=== PATIENT | female | born 1990 | race Caucasian/White ===

== ENCOUNTER 2019-05-23 09:05 | Emergency (ER) | payer SELFPAY ==
[~2019-05-23] VITALS: Ht 157.5 cm; Wt 81.6 kg
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
[2019-05-23] MEDS ORDERED: NAPR-514 PO (11:30)
[2019-05-23 11:45] VITALS: BP 141/90
[2019-05-23] MEDS ORDERED: NAPROXEN 500 MG TABLET PO ONE (11:45)
== END 2019-05-23 11:45 | disposition home or self-care (01) ==
LOC: ER 09:05
DX: S00.83XA Contusion of other part of head, initial encounter (principal); S60.222A Contusion of left hand, initial encounter; S60.221A Contusion of right hand, initial encounter; S80.12XA Contusion of left lower leg, initial encounter; S80.11XA Contusion of right lower leg, initial encounter; S10.93XA Contusion of unspecified part of neck, initial encounter; Y04.0XXA Assault by unarmed brawl or fight, initial encounter; Y93.89 Activity, other specified; Y92.89 Other specified places as the place of occurrence of the external cause; Y99.8 Other external cause status
CPT/HCPCS: 70450; 70486; 81025; 99284-25

== ENCOUNTER 2019-07-13 19:54 | Emergency (ER) | payer SELFPAY ==
[~2019-07-13] VITALS: Ht 157.5 cm; Wt 81.6 kg
[~2019-07-13 19:54] MED LIST: NAPR-514 PO
[2019-07-13 20:39] LABS: BILIRUBIN,URINE NEGATIVE (NEG); CLARITY,URINE CLEAR; COLOR,URINE YELLOW; NITRITE,URINE NEGATIVE (NEG); PH,URINE 5.5; PROTEIN,URINE NEGATIVE (NEG-TRACE); UROBILINOGEN,URINE 0.2 mg/dL (0.2 mg/dL)
[2019-07-13 20:49] LABS: BACTERIA,URINE FEW /HPF (0-FEW); RBC,URINE RARE /HPF (0-2); SQUAMOUS EPITHELIAL CELL,UR MOD /LPF; WBC,URINE RARE /HPF (0-4)
[2019-07-13] MEDS ORDERED: SULF1TAB23 PO (21:20)
[2019-07-13] MEDS ORDERED: PHEN100T82 PO (21:20)
--- NOTE | 2019-07-13 21:20 | PHYS DOC ---
Past Medical History Past Medical History: No Pertinent History Past Surgical History: No Surgical History Alcohol Use: None Drug Use: None Adult General Chief Complaint Chief Complaint: PAIN ON URINATION HPI HPI Patient is a 29 year old female who presents to the ED today complaining of urgency frequency or dysuria that began yesterday. Patient states she has tried Azo [id number] with no relief. She believes she is having a UTI. Denies any chance she is , she states she is a lesbian and is not trying to be Review of Systems Review of Systems Constitutional: Denies fever or chills [] Eyes: Denies change in visual acuity, redness, or eye pain [] HENT: Denies nasal congestion or sore throat [] Respiratory: Denies cough or shortness of breath [] Cardiovascular: No additional information not addressed in HPI [] GI: Denies abdominal pain, nausea, vomiting, bloody stools or diarrhea [] : Reports urgency, frequency, dysuria Musculoskeletal: Denies back pain or joint pain [] Integument: Denies rash or skin lesions [] Neurologic: Denies headache, focal weakness or sensory changes [] All other systems were reviewed and found to be within normal limits, except as documented in this note. Allergies Allergies Allergies Coded Allergies Type Severity Reaction Last Updated Verified No Known Drug Allergies 03/22/14 No Physical Exam Physical Exam Constitutional: Well developed, well nourished, no acute distress, non-toxic appearance. [] HENT: Normocephalic, atraumatic, bilateral external ears normal, oropharynx moist, no oral exudates, nose normal. [] Eyes: PERRLA, EOMI, conjunctiva normal, no discharge. [] Neck: Normal range of motion, no tenderness, supple, no stridor. [] Cardiovascular:Heart rate regular rhythm, no murmur [] Lungs & Thorax: Bilateral breath sounds clear to auscultation [] Abdomen: Bowel sounds normal, soft, no tenderness, no masses, no pulsatile masses. [] Skin: Warm, dry, no erythema, no rash. [] Back: No tenderness, no CVA tenderness. [] Extremities: No tenderness, no cyanosis, no clubbing, ROM intact, no edema. [] Neurologic: Alert and oriented X 3, normal motor function, normal sensory function, no focal deficits noted. [] Psychologic: Affect normal, judgement normal, mood normal. [] Current Patient Data Vital Signs Vital Signs Date Time Temp Pulse Resp B/P (MAP) Pulse Ox O2 Delivery O2 Flow Rate FiO2 07/13/19 20:23 99.2 100 20 137/87 (104) 97 Room Air 99.2 Lab Values Laboratory Tests Test 07/13/19 20:25 Urine Collection Type Unknown Urine Color Yellow Urine Clarity Clear Urine pH 5.5 Urine Specific [place] 1.025 Urine Protein Negative mg/dL (NEG-TRACE) Urine Glucose (UA) Negative mg/dL (NEG) Urine Ketones (Stick) Negative mg/dL (NEG) Urine Blood Negative (NEG) Urine Nitrite Negative (NEG) Urine Bilirubin Negative (NEG) Urine Urobilinogen Dipstick 0.2 mg/dL (0.2 mg/dL) Urine Leukocyte Esterase Negative (NEG) Urine RBC Rare /HPF (0-2) Urine WBC Rare /HPF (0-4) Urine Squamous Epithelial Cells Mod /LPF Urine Bacteria Few /HPF (0-FEW) Urine Mucus Marked /LPF EKG EKG [] Radiology/Procedures Radiology/Procedures [] Course & Med Decision Making Course & Med Decision Making Pertinent Labs and Imaging studies reviewed. (See chart for details) This is a 29-year-old female patient presenting to the ED today with urgency, frequency, dysuria, symptoms began yesterday. Urine negative for UTI, patient continues to ask for antibiotics. I tried to help patient understand the antibiotics of no benefit considering her urine is negative for infection, she believes she is on an early phase of UTI that is not showing up on a UA because she was taking Azo. After a long conversation wrote her a prescription for Bactrim for 3 days and Pyridium. Dragon Disclaimer Dragon Disclaimer This electronic medical record was generated, in whole or in part, using a voice recognition dictation system. Departure Departure Impression: Primary Impression: Dysuria Disposition: 01 HOME, SELF-CARE Condition: STABLE Referrals: NO PCP (PCP) follow up with your doctor in 1 week Patient Instructions: Dysuria-Brief Additional Instructions: You were evaluated in the emergency room for UTI symptoms. Please push fluids. Complete your antibiotics. Follow-up with your doctor in 1-2 weeks. Scripts Sulfamethoxazole/Trimethoprim (BACTRIM 400-80 MG TABLET) 1 Each Tablet 1 TAB PO BID for 7 Days, #6 TAB 0 Refills Prov: LINO TRUJILLO APRN 07/13/19 Phenazopyridine Hcl (PYRIDIUM) 100 Mg Tablet 1 TAB PO TID for urinary discomfort for 2 Days, #6 TAB 0 Refills Prov: LINO TRUJILLO APRN 07/13/19 LINO TRUJILLO APRN Jul 13, 2019 21:20
[2019-07-13 21:26] VITALS: BP 131/87
== END 2019-07-13 21:28 | disposition home or self-care (01) ==
LOC: ER 19:54
DX: R39.15 Urgency of urination (principal); R30.0 Dysuria; R35.0 Frequency of micturition
CPT/HCPCS: 81001; 99283

== ENCOUNTER 2020-11-13 00:03 | Emergency (ER) | payer SELFPAY ==
[~2020-11-13] VITALS: Ht 162.6 cm; Wt 79.5 kg
[~2020-11-13 00:03] MED LIST changes: +PHEN100T82 PO; +SULF1TAB23 PO
--- NOTE | 2020-11-13 00:30 | ED.ADGEN ---
Past Medical History Past Medical History: No Pertinent History Past Surgical History: No Surgical History Smoking Status: Current Every Day Smoker Alcohol Use: None Drug Use: None General Adult EDM: Chief Complaint: CHEST PAIN HPI: HPI: Patient is a previously healthy 30-year-old female who presents to the emergency room with substernal chest pain. She states that it is a dull ache pain that gets worse when she moves around or takes deep breaths. She states that she smoked a lot of cigarettes and had a bunch of stress last night and then woke up this morning with this discomfort. Pain does not radiate. Pain has been constant since onset. She denies any cough, URI symptoms, fever, chills, sweats, shortness of breath, dizziness, syncope. She denies any burning, nausea, vomiting, reflux. Review of Systems: Review of Systems: Complete ROS is negative unless otherwise documented in HPI Allergies: Allergies: Allergies Coded Allergies Type Severity Reaction Last Updated Verified No Known Drug Allergies 03/22/14 No Physical Exam: PE: General: Awake, alert, NAD. Well Nourished, well hydrated. Cooperative HEENT: Atraumatic, EOMI, PERRL, airway patent, moist oral mucosa Neck: Supple, trachea midline Respiratory: CTA bilaterally, normal effort, no wheezing/crackles CV: RRR, no murmur, cap refill <2 GI: Soft, nondistended, nontender, no masses MSK: No obvious deformities Skin: Warm, dry, intact Neuro: A&O x3, speech NL, sensory and motor grossly intact, no focal deficits Psych: Normal affect, normal mood, not suicidal or homicidal Current Patient Data: Vital Signs: Vital Signs Date Time Temp Pulse Resp B/P (MAP) Pulse Ox O2 Delivery O2 Flow Rate FiO2 11/13/20 01:00 62 20 120/80 (93) 96 Room Air 11/13/20 00:10 98.6 98.6 EKG: EKG: [] Heart Score: Risk Factors: Risk Factors: DM, Current or recent (<one month) smoker, HTN, HLP, family history of CAD, obesity. Risk Scores: Score 0 - 3: 2.5% MACE over next 6 weeks - Discharge Home Score 4 - 6: 20.3% MACE over next 6 weeks - Admit for Clinical Observation Score 7 - 10: 72.7% MACE over next 6 weeks - Early Invasive Strategies Radiology/Procedures: Radiology/Procedures: [] Course & Med Decision Making: Course & Med Decision Making Pertinent Labs and Imaging studies reviewed. (See chart for details) Patient is a 30yo female who presents to the ED c/o atypical chest pain. Patient does not have any risk factors for cardiac disease and at this time their pain does not sound cardiac in nature. Patient is Well's score 0 and PERC negative making PE unlikely. On exam, patient has bilateral breath sounds, equal pulses bilaterally, and stable vitals making aortic aneurysm, pneumonia, PTX, tamponade unlikely. EKG was done and shows NSR at this time. Due to patient being low risk they do not need further work up for their chest pain at this time. Patient was offered further testing but declines and states that she wants to go home if her EKG is normal. Chest pain is likely musculoskeletal/GERD in nature. Patient will be discharged home to follow up with primary care. Strict return precautions were given and plan of care was discussed with patient. Patient states understanding and will follow up in clinic. Alexandr Disclaimer: Alexandr Disclaimer: This electronic medical record was generated, in whole or in part, using a voice recognition dictation system. Departure Departure Impression: Primary Impression: Chest pain Disposition: 01 DC HOME SELF CARE/HOMELESS Condition: STABLE Referrals: NO PCP (PCP) Patient Instructions: Chest Pain (Nonspecific) JUAREZ BOCANEGRA MD Nov 13, 2020 00:29
[2020-11-13 01:00] VITALS: BP 120/80
--- NOTE | 2020-11-13 08:55 | EKG ---
[facility] [address] [place] [address] Test Date: 2020-11-13 Test Time: 00:12:12 Pat Name: JERILYN RENEE Department: Room: Gender: F Patient Intake Representative: : 1990 Requested By: JUAREZ BOCANEGRA Order Number: [id number] Reading MD: Measurements Intervals [place] Rate: 66 P: 33 FL: 164 QRS: 16 QRSD: 90 T: 29 QT: 382 QTc: 402 Interpretive Statements SINUS RHYTHM INCOMPLETE RIGHT BUNDLE BRANCH BLOCK QRS(T) CONTOUR ABNORMALITY CONSIDER ANTEROLATERAL MYOCARDIAL DAMAGE POSSIBLY ABNORMAL ECG RI6.01 No previous ECG available for comparison
== END 2020-11-13 01:15 | disposition home or self-care (01) ==
LOC: ER 00:03
DX: R07.2 Precordial pain (principal); F17.200 Nicotine dependence, unspecified, uncomplicated; F17.210 Nicotine dependence, cigarettes, uncomplicated
CPT/HCPCS: 93005; 99283